=== PATIENT | female | born 1960 | race Caucasian/White ===

== ENCOUNTER → 2024-04-07 11:09 | Outpatient (REF) | payer BC, SELFPAY | LOC: HWRAD 11:09 | PROVIDERS: ATTENDING PHYSICIAN Internal Medicine | DX: R06.89 Other abnormalities of breathing (principal); J41.1 Mucopurulent chronic bronchitis | CPT/HCPCS: 71046 ==

== ENCOUNTER → 2025-07-13 11:47 | Outpatient (REF) | payer BC, SELFPAY | LOC: RAD 11:47 | PROVIDERS: ATTENDING PHYSICIAN Internal Medicine | DX: M54.41 Lumbago with sciatica, right side (principal) | CPT/HCPCS: 72114 ==